=== PATIENT | male | born 1970 | race African-American/Black ===

== ENCOUNTER 2017-03-17 12:00 | Inpatient (IN) | payer OTHER ==
--- NOTE | 2017-03-17 12:12 | ED ---
Lower Extremity - HPI Summary HPI Summary: Patient presents to the ED with right lower extremity redness, tightness, decreased pedal pulses and warmth x 4 days which has been worsening. He endorses previous cellulitis in the same leg. He was started on Keflex x 3 days ago without improvement. He notes to some blistering in his lower extremity without drainage. On friday, he endorses fever, sweats and chills, but the cellulitic rash did not decrease in severity. He is here today for worsening symptoms. He also notes to hiccups which began after the initiation of the keflex. He is unaware if he has had keflex in the past. He is currently incarcerated. Denies fevers, sweats or chills currently. The lower extremity is exquisitely tender to the touch. He has been seem for the same complaint several times at [facility] and has been kept as an inpatient for IV antibiotic treatment on multiple occasions. - History of Current Complaint Chief Complaint: EDExtremityLower Stated Complaint: RT LEG SWELLING Time Seen by Provider: 03/17/17 12:09 Hx Obtained From: Patient Mechanism Of Injury: Unknown Onset of Pain: Days Onset/Duration: Days Severity Initially: Moderate Severity Currently: Moderate Pain Intensity: 8 Pain Scale Used: 0-10 Numeric Timing: Constant Location: Is Discrete @ - right lower extremity BTK Associated Signs And Symptoms: Positive: Swelling, Redness, Fever, Weakness Able to Bear Weight: Yes - Risk Factors Gout Risk Factors: Age Over 40, Male, Peripherial Vascular Disease DVT Risk Factors: Negative Septic Arthritis Risk Factor: Negative - Allergies/Home Medications Allergies/Adverse Reactions: Allergies Allergy/AdvReac Type Severity Reaction Status Date / Time Meperidine [From Demerol HCl] Allergy Unknown Verified 03/17/17 12:28 Reaction Details Home Medications: Home Medications Aspirin TAB* [Aspirin 325 MG TAB*] 325 mg PO DAILY 03/17/17 [History Confirmed 03/17/17] Cephalexin CAP* [Keflex CAP*] 1,000 mg PO BID 03/17/17 [History Confirmed ] Levothyroxine TAB* [Synthroid TAB*] 100 mcg PO DAILY 03/17/17 [History Confirmed 03/17/17] amLODIPine TAB* [Norvasc 5 mg TAB*] 5 mg PO DAILY 03/17/17 [History Confirmed ] PMH/Surg Hx/FS Hx/Imm Hx Previously Healthy: Yes - Immunization History Hx Pertussis Vaccination: No Immunizations Up to Date: Unable to Obtain/Confirm Infectious Disease History: Yes - patient has had recurrent cellulitis Infectious Disease History: Denies: Traveled Outside the [place] in Last 30 Days - Social History Occupation: Unemployed Lives: Alone - incarcerated Hx Substance Use: No Substance Use Type: Reports: None Hx Tobacco Use: No Do You Chew or Dip Tobacco: No Have You Chewed or Dipped Tobacco in the LAST YEAR: No Review of Systems Constitutional: Negative Eyes: Negative Cardiovascular: Negative Respiratory: Negative Genitourinary: Negative Positive: no symptoms reported, see HPI Musculoskeletal: Negative Positive: Other - right lower extremity erythema, warmth tightness with scant of blistering Neurological: Negative Psychological: Normal All Other Systems Reviewed And Are Negative: Yes Physical Exam Triage Information Reviewed: Yes Vital Signs On Initial Exam: Initial Vitals Temp Pulse Resp BP Pulse Ox 97.7 F 75 22 148/56 100 03/17/17 12:04 03/17/17 12:04 03/17/17 12:04 03/17/17 12:04 03/17/17 12:04 Vital Signs Reviewed: Yes Appearance: Positive: Well-Appearing, Well-Nourished Skin: Positive: Warm, Diaphoretic, Other - scant amount of blistering on the right lower extremity - BTK. erythema, warmth, tightness and pain Head/Face: Positive: Normal Head/Face Inspection Eyes: Positive: EOMI, TG, Conjunctiva Clear Neck: Positive: Supple, Nontender, No Lymphadenopathy Respiratory/Lung Sounds: Positive: Clear to Auscultation, Breath Sounds Present Cardiovascular: Positive: RRR, Pulses are Symmetrical in both Upper and Lower Extremities Musculoskeletal: Positive: Strength/ROM Intact, Pain @ - right lower extremity btk Neurological: Positive: Speech Normal Psychiatric: Positive: Normal - Minna Coma Scale Best Eye Response: 4 - Spontaneous Best Motor Response: 6 - Obeys Commands Best Verbal Response: 5 - Oriented Diagnostics - Vital Signs Vital Signs Temp Pulse Resp BP Pulse Ox 03/17/17 12:04 97.7 F 75 22 148/56 100 - Laboratory Result Diagrams: 03/17/17 12:45 03/17/17 12:45 Lab Statement: Any lab studies that have been ordered have been reviewed, and results considered in the medical decision making process. Lower Extremity Course/Dx - Course Course Of Treatment: Patient presents with left lower extremity erythema, warmth and tightness to the leg x 4 days which has progressively gotten worse despite Keflex. Fevers, sweats and chills x 4 days ago and currently is experiencing. Despite Keflex, will obtain blood cultures to envaluate for other growth and resistance to med. Labs obtained: Temp on arrival for provider 100.1. Patient is shaking and states he is cold. Ibuprofen 600mg given after patient refused tylenol. Clindamycin 900IV given. For hiccups: encouraged patient to try the first line therapies of physical maneuvers and stimulationg techniques which included the following: sipping cold water, gargling with water, swallowing a teaspoon of dry sugar; increase vagal stimulation by pressing on the eyeballs; pulling knees to chest, leaning forward to compress the chest; breath holding, Valsalva maneuver. He agrees and sugar packets and cold water given with effect. Hiccups ceased. Elevated WBC count and D-dimer, although not elevated enough to suggest DVT accrording to UTD. Called hopitalist at 2pm who agrees to accept patient. Tylenol given with effect of temp. - Diagnoses Differential Diagnosis/HQI/PQRI: Positive: Arthritis, Cellulitis, Compartment Syndrome, DVT Provider Diagnoses: Cellulitis Discharge - Discharge Plan Condition: Stable Disposition: ADMITTED TO [facility]
[2017-03-17] MEDS ORDERED: Vancomycin(*) 1,500 MG in NS 0.9% 250 ML* 250 ML IVPB ONE (12:23)
[2017-03-17] MEDS ORDERED: Clindamycin 900 MG IVPREMIX(* 900 MG/50 ML SDV IV ONE (12:24)
[2017-03-17] MEDS ORDERED: Acetaminophen TAB* 325 MG PO ONE (13:13)
[2017-03-17 13:16] LABS: Hematocrit 42 % (42-52); Hemoglobin 13.8 g/dl (14.0-18.0); Mean Corpuscular HGB Conc 33 g/dl (31-36); Mean Corpuscular Hemoglobin 29 pg (27-31); Mean Corpuscular Volume 86 fL (80-94); Mean Platelet Volume 10 um3 (7.4-10.4); Red Blood Count 4.84 10^6/ul (4.0-5.4); Red Cell Distribution Width 16 % (10.5-15); White Blood Count 11.3 10^3/ul (3.5-10.8)
[2017-03-17 13:19] LABS: Albumin 3.7 g/dL (3.2-5.2); BUN/Creatinine Ratio 9.8 (8-20); C Reactive Protein 291.92 mg/L (< 5.00); Calcium 9.5 mg/dL (8.6-10.3); EGFR African American 74.1 (>60); EGFR Non-African American 57.6 (>60); Globulin 3.7 g/dL (2-4); Potassium 3.7 mmol/L (3.5-5.0); Total Bilirubin 0.5 mg/dL (0.2-1.0); Total Protein 7.4 g/dL (6.4-8.9)
[2017-03-17] MEDS ORDERED: Ibuprofen TAB* 600 MG PO ONE (13:30)
[2017-03-17] MEDS ORDERED: Ibuprofen TAB* 600 MG ONE (13:32)
[2017-03-17] MEDS ORDERED: NS 0.9% 1000 ML* 1,000 ML IV ONE (14:48)
[2017-03-17] MEDS ORDERED: Ondansetron INJ* 2 MG/ML VIAL IV PRN (15:39)
[2017-03-17] MEDS ORDERED: Vancomycin per Pharmacy* NOTE FOLLOW UP PRN (15:49)
[2017-03-17] MEDS ORDERED: Vancomycin(*) 0 MG in NS 0.9% 250 ML* 250 ML IVPB SCH (16:00)
[2017-03-17] MEDS ORDERED: Vancomycin 1500 MG IV - x ONCE IVPB ONE ×2 (17:00)
[2017-03-17] MEDS: Heparin VIAL(*) 5000 UNITS/ML VIAL (FIVE THOUSAND) SUBCUT SCH (21:33)
--- NOTE | 2017-03-17 21:34 | HP ---
CC: Providers at [facility] MEDICINE HISTORY AND PHYSICAL: DATE OF ADMISSION: ATTENDING PHYSICIAN: Sven Magdaleno MD* (dictation provided by Adina Mirza NP ) CHIEF COMPLAINT: Right lower extremity redness, pain, swelling with fever. HISTORY OF PRESENT ILLNESS: Mr. Herrera is a 47-year-old male with a past medical history of hypertension, hypothyroidism, obstructive sleep apnea, not currently on CPAP and multiple episodes of cellulitis thought to be related to peripheral vascular disease, who presents to the hospital today with concern for right lower extremity pain, redness, swelling with associated fever despite outpatient antibiotic treatment. Mr. Herrera states that he began to feel some pain in his leg on . By Friday, he had a fever to 104. He was taken out of general circulation a the [facility] and on to the sick [facility]. He remained there on Keflex. Despite this, he had continued fever and extension of the infection past the line demarcated by staff on the leg ranging down on to the foot and up into the thigh. He reports some nausea and vomiting which he associates with hiccups. He states the hiccups started immediately after starting Keflex. He has had no nausea, vomiting today. He denies abdominal pain , he denies diarrhea, he denies chest pain, he denies shortness of breath. He denies cough. Mr. Herrera states that he has had multiple episodes of cellulitis in the past. He notes that they started at the end of last year. He has been hospitalized for them at the [facility]. He notes no history of MRSA. He is not quite clear why he is having the cellulitis, although he does endorse a history of peripheral vascular disease. He himself thinks that perhaps the cellulitis was related to mold in a home he lived in previously. In the emergency room, Mr. Herrera had an essentially normal white blood cell count of 11.3; however, his CRP was quite elevated to 291.92. The remainder of his labs show an elevated creatinine of 1.32 with unknown baseline. He has reported fever although it is not yet documented in the electronic medical record yet. PAST MEDICAL HISTORY: 1. Hypertension. 2. Hypothyroidism. 3. Recent episode of cellulitis starting in 2016 to bilateral lower extremities. 4. Peripheral vascular disease. 5. Obstructive sleep apnea, not on CPAP. PAST SURGICAL HISTORY: 1. History of traumatic injury to the right rib fracture and hemothorax, August 2016. 2. History of jaw fracture with wiring. 3. History of retinal detachment, right eye, status post laser repair. MEDICATIONS: 1. Amlodipine 5 mg p.o. daily. 2. Synthroid 100 mcg p.o. daily. 3. Aspirin 325 mg p.o. daily. 4. Keflex 1000 mg p.o. b.i.d. ALLERGIES: To MEPERIDINE FAMILY HISTORY: The patient reports his mom is alive, but she had a history of a kidney transplant. He is not sure why she required that. Dad's history is unknown. SOCIAL HISTORY: The patient is a former smoker. Quit recently, but has over 20 - pack-year history of smoking. No report of current alcohol or drug use, although he is currently incarcerated at [facility]. He states that his , Shira Goldstein, will be the healthcare proxy. REVIEW OF SYSTEMS: A 14-point review of systems was completed with Mr. Herrera and all those not mentioned above were negative. PHYSICAL EXAMINATION GENERAL: Mr. Herrera is sitting in the bed, he is in no acute distress. VITAL SIGNS: Most recent documentation shows temperature 98.8, heart rate 75, respiratory rate 16, O2 saturation 98% on room air, blood pressure 151/93. LUNGS: Clear to auscultation bilaterally with no accessory muscle use and good aeration. HEART: S1, S2. No murmur, rub, and gallop and regular. ABDOMEN: Soft, it is nontender, bowel sounds positive x4. EXTREMITIES: There is 2 to 3+ edema to the right lower extremity. The erythema extends past the noted line of demarcation on to the dorsum of the foot. There is redness up to the level of the knee with suggestion of a couple of spots of redness on the inner thigh, which are minimal. There is blistering along the right ankle, but there are no open areas, no obvious area of induration. No drainage. The left lower extremity shows no abnormality. NEUROLOGIC: He is alert, he is oriented x3. He moves all extremities equally. There is no facial asymmetry or focal weakness. Extraocular movements are intact. SKIN: As per above. LABORATORY DATA: D-dimer 279, WBC 11.3, hemoglobin 13.8, hematocrit 42, platelet count 225. Sodium 132, potassium 3.7, chloride 100, bicarb 28, BUN 13 , creatinine 1.32, glucose 102, lactic acid 1.3, CRP 291.92. ASSESSMENT: Mr. Herrera is a 47-year-old male with past medical history of multiple episodes of cellulitis in 2017 requiring hospitalization in [facility] as well as a history of peripheral vascular disease, hypothyroidism, and hypertension, who presents to the hospital today with concern for right lower extremity redness, swelling, pain with fever in the setting of outpatient treatment with Keflex. Our plans are for inpatient admission as I expect the length of stay to be greater than 2 days for the followin. Cellulitis: The patient has risk factors for MRSA as he is incarcerated. He has failed outpatient treatment with Keflex. He is febrile and showing signs of systemic illness. Plans will be for vancomycin treatment. Plan to consult Dr. Pérez Andrews of Infectious Diseases tomorrow. The patient has had blood cultures drawn. His lactic acid is normal. He will have IV fluids overnight as well as Tylenol while he is febrile. 2. Hypertension: Plan to continue his low dose amlodipine as his blood pressure systolically running in the 150s. 3. Hypothyroidism: Continue levothyroxine. 4. DVT prophylaxis with heparin subcu. 5. Disposition: To the medical floor. TIME SPENT: Approximately 60 minutes were spent on the admission of this patient, more than half that time spent with the patient at bedside reviewing the events leading up to this hospitalization, performing the physical examination and reviewing the plan of care. ADINA MIRZA NP [id number]/[facility] #: [id number] FILIPE
[2017-03-17] MEDS: Acetaminophen TAB* 325 MG PO PRN (22:22)
[2017-03-17] MEDS: NS 0.9% 1000 ML* 1,000 ML IV SCH (22:57)
[2017-03-18] MEDS: Calcium Carbonate CHEW TAB* 500 MG (TUMS) PO PRN ×2 (01:11→16:41)
[2017-03-18] MEDS ORDERED: Vancomycin(*) 1,250 MG in NS 0.9% 250 ML* 250 ML IVPB SCH (02:00)
[2017-03-18] MEDS: Levothyroxine TAB* 100 MCG TAB PO SCH (05:03)
[2017-03-18] MEDS: Heparin VIAL(*) 5000 UNITS/ML VIAL (FIVE THOUSAND) SUBCUT SCH ×3 (05:03→21:41)
[2017-03-18] MEDS: Acetaminophen TAB* 325 MG PO PRN ×2 (05:06→13:30)
[2017-03-18 05:41] LABS: Hematocrit 37 % (42-52); Hemoglobin 12.5 g/dl (14.0-18.0); Mean Corpuscular HGB Conc 34 g/dl (31-36); Mean Corpuscular Hemoglobin 29 pg (27-31); Mean Corpuscular Volume 86 fL (80-94); Mean Platelet Volume 9 um3 (7.4-10.4); Red Blood Count 4.33 10^6/ul (4.0-5.4); Red Cell Distribution Width 16 % (10.5-15); White Blood Count 10.6 10^3/ul (3.5-10.8)
[2017-03-18 05:58] LABS: BUN/Creatinine Ratio 10.7 (8-20); Calcium 8.6 mg/dL (8.6-10.3); EGFR African American 81.2 (>60); EGFR Non-African American 63.1 (>60); Potassium 3.4 mmol/L (3.5-5.0)
[2017-03-18] MEDS: NS 0.9% 1000 ML* 1,000 ML IV SCH (08:18)
[2017-03-18] MEDS: amLODIPine TAB* 5 MG PO SCH (09:01)
[2017-03-18] MEDS: Aspirin TAB* 325 MG PO SCH (09:01)
[2017-03-18] MEDS: Clindamycin 600 MG IVPREMIX(* 600 MG/50 ML SDV IV SCH ×2 (09:01→16:37)
--- NOTE | 2017-03-18 10:51 | PN ---
Subjective Date of Service: 03/18/17 Interval History: This is a 47 yo incarcerated male with HTN, hypothyroidism, ADELINA and PVD who presented with evidence of RLE cellulitis that had failed outpt Keflex. Patient reports recurrent cellulitis over the last several months, unsure of which antibiotics have been used. Patient was evaluated by ID specialist, Dr Andrews this am, who recommended Clindamycin as abx of choice. Patient reports improvement in pain in his RLE as well as his "overall feeling" . Denies c/o CP, SOB, abd pain, n/v. Objective Active Medications: Acetaminophen (Tylenol Tab*) 650 mg PO Q6H PRN PRN Reason: Pain/fever Last Admin: 03/18/17 05:06 Dose: 650 mg Amlodipine Besylate (Norvasc Tab*) 5 mg PO DAILY [facility] Last Admin: 03/18/17 09:01 Dose: 5 mg Aspirin (Aspirin Tab*) 325 mg PO DAILY [facility] Last Admin: 03/18/17 09:01 Dose: 325 mg Calcium Carbonate (Tums*) 500 mg PO Q8H PRN PRN Reason: HEARTBURN Last Admin: 03/18/17 01:11 Dose: 500 mg Heparin Sodium (Porcine) (Heparin Vial(*)) 5,000 units SUBCUT Q8HR [facility] Last Admin: 03/18/17 05:03 Dose: 5,000 units Sodium Chloride (Ns 0.9% 1000 Ml*) 1,000 mls @ 125 mls/hr IV PER RATE [facility] Last Admin: 03/18/17 08:18 Dose: 125 mls/hr Clindamycin HCl/Dextrose (Cleocin 600 Mg Ivpremix(*) Sdv) 600 mg in 50 mls @ 100 mls/hr IV Q8H [facility] Last Admin: 03/18/17 09:01 Dose: 100 mls/hr Levothyroxine Sodium (Synthroid Tab*) 100 mcg PO 0600 [facility] Last Admin: 03/18/17 05:03 Dose: Not Given Ondansetron HCl (Zofran Inj*) 4 mg IV Q6H PRN PRN Reason: NAUSEA Vital Signs: Temp Pulse Resp BP Pulse Ox 98.7 F 88 20 128/62 98 03/18/17 07:22 03/18/17 09:32 03/18/17 09:32 03/18/17 09:32 03/18/17 07:22 Oxygen Devices in Use Now: None Appearance: Well appearing middle aged male in NAD. Accompanied by 2 guards. Respiratory: Symmetrical Chest Expansion and Respiratory Effort, Clear to Auscultation Cardiovascular: NL Sounds; No Murmurs; No JVD, RRR Abdominal: NL Sounds; No Tenderness; No Distention Extremities: - - RLE edema Skin: - - erythema involving the RLE from the superior margin of the ankle to the inferior knee, few small intact blisters present, erythema within lines previously drawn Neurological: Alert and Oriented x 3 Result Diagrams: 03/18/17 05:32 03/18/17 05:32 Assess/Plan/Problems-Billing Assessment: This is a 47 yo incarcerated male with HTN, PVD, hypothyroidism, ADELINA and recurrent cellulitis who presented with c/o fever, RLE pain and edema resistant to po Keflex. - Patient Problems (1) Cellulitis Comment: RLE Appreciate ID input Cont clinda as recommended No associated abscess Blood cx pend Afebrile overnight and improved leukocytosis (2) RAF (acute kidney injury) Comment: Unsure of baseline Cr Some improvement with IVF Cont to monitor (3) Hypertension Comment: Normotensive Cont home dose of amlodipine (4) Hypothyroidism Comment: Cont levothyroxine (5) ADELINA (obstructive sleep apnea) Comment: Not currently treated with CPAP (6) PVD (peripheral vascular disease) (7) Full code status (8) DVT prophylaxis Comment: SQ heparin Status and Disposition: Inpatient. Anticipate 1-2 additional LOS
--- NOTE | 2017-03-18 11:04 | CONS ---
CONSULTATION REPORT: DATE OF CONSULTATION: 03/18/17 REQUESTING PROVIDER: Adina Mirza NP CONSULTING SERVICE: Infectious Disease. REASON FOR CONSULTATION: Right leg cellulitis. IMPRESSION: 1. Right lower extremity cellulitis without apparent ankle involvement though he does have diffuse edema in that area, I think secondary just to the skin and soft tissue infection. Usually group A strep. There is no evidence of abscess. 2. Recurrent cellulitis for the last year sometimes left, sometimes right leg. Does have untreated sleep apnea, which can sometimes cause some lower extremity edema, decreased skin's effectiveness as a barrier to infection. He is otherwise systemically well and no clear inguinal nodes to suggest outflow obstruction would increase chance of recurrent infection. 3. Peripheral vascular disease. RECOMMENDATIONS: 1. Stop vancomycin, start clindamycin 600 mg IV every 8 hours, we will keep a close eye on his leg. We will add a CK to assess for muscle breakdown, which is a late finding of fasciitis, which at this point there is no evidence of. 2. We discussed because of recurrence, in addition to an immune workup, which will include HIV antibody, which has already been sent and we could consider prophylactic amoxicillin for a few months' time to break the cycle of infection , which sometimes allows the legs to heal up and skin to become more effective barrier to infection in the future. HISTORY OF PRESENT ILLNESS: This is a 47-year-old -[place] man admitted with right leg pain and fever. He is incarcerated, he was seen in the [facility] last week for right leg pain and swelling, started on Keflex. He had fever at that time to 102. Because of worsening right leg pain, was brought to the ER yesterday, his CRP was 300, white blood cell count is 11, he had a dose of clindamycin, then was on vancomycin today. He kept his legs elevated today. The area of redness and pain is about the same. He does not have severe ankle pain with weightbearing. He is able to move his ankle and flex his calf and gastroc. He has had no fevers since he has been here. No chills or sweats either. We discussed the Keflex he took was a fine antibiotic for an infection like this. They have just needed a day or two of IV antibiotics to turn the tide. He has had recurrent cellulitis, sometimes on the left, sometimes on the right, the last time on the right was about 8 months ago, it usually gets better with antibiotic pills. He has had to be in the hospital with IV antibiotics for another episode as well. PAST MEDICAL HISTORY: 1. Cellulitis. 2. Peripheral vascular disease. 3. Hypertension. 4. Hypothyroidism. 5. Obstructive sleep apnea, not using CPAP. 6. Right rib fracture. 7. Hemothorax in August 2016. 8. Jaw fracture status post fixation. 9. Retinal detachment right eye, status post laser repair. ALLERGIES: MEPERIDINE. MEDICATIONS: 1. Tylenol. 2. Aspirin. 3. Calcium carbonate. 4. Heparin subcutaneous injection. 5. Ibuprofen. 6. Levothyroxine. 7. Vancomycin 1500 mg. 8. Amlodipine. SOCIAL HISTORY: He is incarcerated. No travel. No sick contacts. Denies injection drug use. FAMILY HISTORY: Mother with a kidney transplant for unclear reasons. Father's history unknown. REVIEW OF SYSTEMS: All negative to a full review of systems except as noted above. PHYSICAL EXAM: Vital Signs: Temperature is 37, heart rate of 100, respiratory rate of 20, blood pressure 130/50, and O2 sat 98% on room air. In general, he is awake and not in distress. HEENT: There is no conjunctival hemorrhage. Oropharynx without lesions. Neurologic: He is oriented x3. Follows all commands. Moves all 4 extremities. Neck is supple without nuchal rigidity. Lymph Nodes: There is a right inguinal node, which is tender, mobile as well as a couple on the right medial thigh that are tender and mobile. No other inguinal or axillary lymphadenopathy. Heart is regular rate and rhythm without murmurs, rubs, or gallops. Lungs: Are clear to auscultation bilaterally. Abdomen: Soft, nontender, and nondistended. Bowel sounds are present. Skin: There is no rash or splinter hemorrhages. Musculoskeletal: There is no spine tenderness to palpation. On the right leg, there is diffuse edema from below the knee through the mid foot without crepitus or fluctuance. There is diffuse tenderness, there is warmth and mild erythema. There is no wound. There is diffuse tenderness through the ankle and mid foot, not worse at the ankle joint. He can flex and extend his ankle. LABORATORY DATA: White blood cell count 10, hemoglobin 12, platelets 215, creatinine is 1.2. Please see impressions and recommendations outlined above. Thank you for asking me to see Mr. Herrera in consultation. [id number]/[facility] #: [id number] [facility] JOSEPH'S MEDICAL CENTERKarina
[2017-03-18] MEDS ORDERED: Vancomycin Trough Check NOTE FOLLOW UP ONE (17:30)
[2017-03-19] MEDS: Clindamycin 600 MG IVPREMIX(* 600 MG/50 ML SDV IV SCH ×2 (01:00→08:08)
[2017-03-19] MEDS: Levothyroxine TAB* 100 MCG TAB PO SCH ×2 (06:36→07:23)
[2017-03-19] MEDS: Heparin VIAL(*) 5000 UNITS/ML VIAL (FIVE THOUSAND) SUBCUT SCH ×2 (06:36→14:09)
[2017-03-19] MEDS: Aspirin TAB* 325 MG PO SCH (08:08)
[2017-03-19] MEDS: amLODIPine TAB* 5 MG PO SCH (08:08)
[2017-03-19] MEDS ORDERED: Polyethylene Glycol 3350* 17 GM PACKET PO ONE (10:30)
[2017-03-19 12:10] VITALS: BP 147/75
[2017-03-19] MEDS ORDERED: cefTRIAXone VIAL(*) 1,000 MG in NS 0.9% 50 ML* 50 ML IVPB ONE (13:39)
--- NOTE | 2017-03-19 14:18 | RAD ---
INDICATION: Right lower extremity swelling evaluate for deep venous thrombosis. COMPARISON: There are no prior studies available for comparison. TECHNIQUE: Multiple real-time, color flow and Doppler tracings of the right lower extremity were obtained. FINDINGS: The common femoral, femoral, profunda femoral and popliteal veins all demonstrate normal compressibility, augmentation with compression and phasic response with respiration. The posterior tibial and peroneal veins demonstrate normal compressibility and augmentation with compression. There is an enlarged lymph node in the right inguinal region measuring 3.3 x 1.5 cm in size. IMPRESSION: 1. NO EVIDENCE FOR DEEP VENOUS THROMBOSIS. 2. ENLARGED RIGHT INGUINAL LYMPH NODE.
--- NOTE | 2017-03-20 06:38 | DS ---
CC: Tiara Wood NP, [facility] * DISCHARGE SUMMARY: DATE OF ADMISSION: 03/17/17 DATE OF DISCHARGE: 03/19/17 PRIMARY CARE PROVIDER: Tiara Wood NP, and the patient is a current inmate at [facility]. CONSULTING INFECTIOUS DISEASE PROVIDER: Dr. Andrews. DISCHARGING PROVIDER: RADHA Diaz SUPERVISING PHYSICIAN: Dr. David Salomon * (DICTATED BY RADHA DIAZ) PRIMARY DISCHARGE DIAGNOSIS: Right lower extremity cellulitis. SECONDARY DISCHARGE DIAGNOSES: 1. Chronic kidney disease, stage 3. 2. Hypertension. 3. Hypothyroidism. 4. Obstructive sleep apnea, not currently treated with CPAP. 5. Peripheral vascular disease. DISCHARGE MEDICATIONS: 1. Aspirin 325 mg p.o. daily. 2. Clindamycin 300 mg p.o. t.i.d. x10 days. 3. Levothyroxine 100 mcg p.o. daily. 4. Amlodipine 5 mg p.o. daily. MEDICATION CHANGES: 1. Stop Keflex. 2. Start clindamycin. HOSPITAL IMAGING: Venous Doppler shows no evidence of DVT. HOSPITAL COURSE: This is a 47-year-old gentleman who is a current inmate at [facility] with history of hypertension, hypothyroidism, obstructive sleep apnea, peripheral vascular disease, and reported history of frequent cellulitis, who has been treated at the [facility] with oral Keflex for several days, but despite this continued to have increasing redness and persistent fever. When he was in the emergency department, he had mild leukocytosis with a white blood cell count of 11,300. Hemoglobin and platelets within normal limits. D-dimer mildly elevated at 280. Metabolic panel demonstrated elevated creatinine, but his baseline is unknown. CRP was significantly elevated at 291. The patient had significant swelling, erythema, and edema of his right lower extremity and was subsequently admitted for right lower extremity cellulitis. The patient responded well to IV clindamycin, which was recommended by infectious disease specialist, Dr. Barry Andrews and he remained afebrile with improvement of his white blood cell count and recession of the erythema. Dr. Barry Andrews, infectious disease specialist evaluated the patient and due to the frequency of his cellulitis suggested that he may benefit from 3 to 4 months of oral amoxicillin as a prophylactic measure to hopefully prevent recurrent infections. HIV testing was completed during his hospital stay, which was negative. DISCHARGE PLAN AND DISPOSITION: The patient is returning to [facility]. Recommended additional 10 days of oral clindamycin followed by 3 to 4 months oral amoxicillin. The patient can follow up with infectious disease specialist, Dr. Barry Andrews if necessary. Recommendations at the time of discharge include to limit weight-bearing activity with frequent leg elevation to help to control pain and swelling. RADHA DIAZ [id number]/[facility] #: [id number] FILIPE
== END 2017-03-19 15:55 | disposition home or self-care (01) | DRG 383 ==
LOC: ED 12:00 → MED 14:49 → EEVIPCON 14:49
PROVIDERS: ADMIT Internal Medicine; ATTEND Physician Assistant
DX: L03.115 Cellulitis of right lower limb (principal); N17.9 Acute kidney failure, unspecified; N18.3 Chronic kidney disease, stage 3 (moderate); I12.9 Hypertensive chronic kidney disease with stage 1 through stage 4 chronic kidney disease, or unspecified chronic kidney disease; E03.9 Hypothyroidism, unspecified; G47.33 Obstructive sleep apnea (adult) (pediatric); I73.9 Peripheral vascular disease, unspecified; Z87.891 Personal history of nicotine dependence; Z79.82 Long term (current) use of aspirin
CPT/HCPCS: 36415; 80048; 80053; 82550; 83036; 83605; 85025; 85379; 86140; 86703; 87040; A9270-GY; J0696; J1644; J3370